=== PATIENT | male | born 1950 | race Caucasian/White ===

== ENCOUNTER 2023-12-23 00:52 | Inpatient (IN) | payer OTHER ==
[2023-12-23] MEDS ORDERED: BENZOCAINE/MENTHOL (CHLORASEPTIC ) LOZENGE MM PRN (03:13)
[2023-12-23] MEDS ORDERED: LOPERAMIDE HCL 2 MG CAPSULE PO PRN (03:13)
[2023-12-23] MEDS ORDERED: NALOXONE (NARCAN) HCL 4 MG/0.1 ML SPRAY NS PRN (03:13)
[2023-12-23] MEDS ORDERED: MAG HYDROX/AL HYDROX/SIMETH 30 ML UNIT-DOSE CUP PO PRN (03:13)
[2023-12-23] MEDS ORDERED: IBUPROFEN 600 MG TABLET (FP) PO PRN (03:13)
[2023-12-23] MEDS ORDERED: IBUPROFEN 400 MG TABLET (FP) PO PRN (03:13)
[2023-12-23] MEDS ORDERED: ONDANSETRON *ODT* 4 MG TABLET SL PRN (03:13)
[2023-12-23] MEDS ORDERED: guaiFENesin 600 MG TABLET.ER (FP) PO PRN (03:13)
[2023-12-23] MEDS ORDERED: BISMUTH SUBSALICYLATE 524 MG/30 ML PO PRN (03:13)
[2023-12-23] MEDS ORDERED: ACETAMINOPHEN 325 MG TABLET (FP) PO PRN (03:13)
[2023-12-23] MEDS ORDERED: MAGNESIUM HYDROX 2400MG/30ML ORAL SUSPENSION 30 ML CUP PO PRN (03:13)
[2023-12-23] MEDS ORDERED: POLYETHYLENE GLYCOL (HEALTHYLAX) 3350 17 GM PACKET PO PRN (03:13)
[2023-12-23] MEDS ORDERED: BENZONATATE 200 MG CAPSULE PO PRN (03:13)
[2023-12-23] MEDS ORDERED: NALOXONE HCL 0.4 MG/ML VIAL IM PRN (03:13)
[2023-12-23] MEDS ORDERED: chlordiazePOXIDE HCL 25 MG CAPSULE PO PRN (09:09)
[2023-12-23] MEDS: PRENATAL VITAMINS W/ FOLIC ACID TABLET (FP) PO SCH (10:13)
[2023-12-23] MEDS: PANTOPRAZOLE 40 MG TABLET PO SCH (10:14)
[2023-12-23] MEDS ORDERED: chlordiazePOXIDE HCL 25 MG CAPSULE PO SCH (17:00)
[2023-12-23] MEDS: chlordiazePOXIDE HCL 25 MG CAPSULE PO SCH (17:06)
[2023-12-23] MEDS: THIAMINE 100 MG TABLET PO SCH (22:05)
[2023-12-23] MEDS: MELATONIN 5 MG TABLETS PO SCH (22:06)
[2023-12-24] MEDS: TAMSULOSIN HCL 0.4 MG CAP PO SCH (07:44)
[2023-12-24] MEDS: LISINOPRIL 10 MG TABLET PO SCH (11:45)
[2023-12-24 12:02] LABS: HEMATOCRIT 37.7 % (35.4-49); HEMOGLOBIN 12.4 GM/dL (11.7-16.9); MCH 31.3 pg (25.7-33.7); MCHC 32.9 g/dl (32.0-35.9); MEAN CELL VOLUME 95.1 fl (80-96); MEAN PLT VOLUME 8.4 fl (7.5-11.1); PLATELET COUNT 259 10^3/uL (134-434); RBC 3.97 M/mm3 (4.00-5.60); RDW 12.9 % (11.9-15.9); WHITE BLOOD COUNT 6.3 K/mm3 (4.0-10.0)
[2023-12-24 12:19] LABS: POTASSIUM 3.8 mmol/L (3.5-5.1)
[2023-12-24 12:22] LABS: ALBUMIN 3.9 g/dl (3.4-5.0); BLOOD UREA NITROGEN 8.8 mg/dL (7-18); CALCIUM 9.3 mg/dL (8.5-10.1)
[2023-12-24 12:27] LABS: CREATININE 1.4 mg/dL (0.55-1.3)
[2023-12-24 12:28] LABS: BILIRUBIN,TOTAL 0.8 mg/dL (0.2-1)
[2023-12-24 12:29] LABS: TOT PROT 6.6 g/dl (6.4-8.2)
[2023-12-25] MEDS: chlordiazePOXIDE HCL 25 MG CAPSULE PO SCH (05:37)
[2023-12-26] MEDS ORDERED: chlordiazePOXIDE HCL 10 MG CAPSULE PO PRN
[2023-12-26] MEDS: chlordiazePOXIDE HCL 10 MG CAPSULE PO SCH (05:45)
[2023-12-26 08:34] VITALS: BP 132/82; PULSE 92; RESP 18; TEMP 97.7
[2023-12-27] MEDS ORDERED: chlordiazePOXIDE HCL 10 MG CAPSULE PO SCH (05:00)
[2023-12-28] MEDS ORDERED: chlordiazePOXIDE HCL 10 MG CAPSULE PO ONE (05:00)
== END 2023-12-26 09:05 | disposition home or self-care (01) | DRG 897 ==
LOC: YASAS 00:52 → Y6N 03:37
PROVIDERS: ADMIT Allergy & Immunology; ATTEND Surgery
PROC: HZ2ZZZZ Detoxification Services for Substance Abuse Treatment (ICD-10-PCS; principal; 2023-12-23)
DX: F10.230 Alcohol dependence with withdrawal, uncomplicated (principal); F12.20 Cannabis dependence, uncomplicated; F10.282 Alcohol dependence with alcohol-induced sleep disorder; F32.A Depression, unspecified; G47.00 Insomnia, unspecified; I10 Essential (primary) hypertension; K21.9 Gastro-esophageal reflux disease without esophagitis; N40.0 Benign prostatic hyperplasia without lower urinary tract symptoms; Z87.891 Personal history of nicotine dependence; Z86.11 Personal history of tuberculosis
CPT/HCPCS: 36415; 71046-TC-FY; 80053; 80305; 80307; 85027; 86780; 93005; 93010